=== PATIENT | male | born 1970 | race Caucasian/White ===

== ENCOUNTER 2016-08-07 20:30 | Emergency (ER) | payer OTHER ==
[~2016-08-07] VITALS: Ht 180.3 cm; Wt 85.6 kg
[2016-08-07 21:24] LABS: HEMATOCRIT 39.5 % (38.0-50.0); MCH 31.9 PG (29.0-34.0); MCHC 35.2 G/DL (30.0-36.0); MCV 90.6 FL (86-99); MEAN PLAT.VOLUME 8.3 uM^3 (9.0-12.4); PLATELET COUNT 217 K/uL (156-360); RBC DIS.WIDTH-SD 39.7 % (39-53); RED BLOOD COUNT 4.36 M/uL (4.00-5.50); WHITE BLOOD COUNT 7.2 K/uL (4.1-10.2)
[2016-08-07 21:31] LABS: CHLORIDE 109 mEq/L (99-109)
[2016-08-07 21:32] LABS: SODIUM 143 mEq/L (136-147)
[2016-08-07 21:34] LABS: GLUCOSE 103 mg/dL (70-99)
[2016-08-07 21:35] LABS: ANION GAP 8 MEQ/L (2-14)
[2016-08-07 21:36] LABS: TOTAL BILIRUBIN 0.6 mg/dL (0.0-1.0)
[2016-08-07 21:37] LABS: ALKALINE PHOSPHATASE 55 IU/L (3-129); GFR ESTIMATE (CALCULATED) > 59 mL/min/
[2016-08-07 21:38] LABS: UREA NITROGEN (BUN) 19 mg/dL (9-23)
[2016-08-07 21:46] LABS: TROP-I INTERPRETATION NEGATIVE; TROPONIN-I < 0.01 ng/mL (0.0-0.30)
[2016-08-08 00:06] LABS: D-DIMER ELISA < 0.15 mg/L FEU (< 0.57)
[2016-08-08 00:53] LABS: TROP-I INTERPRETATION NEGATIVE; TROPONIN-I < 0.01 ng/mL (0.0-0.30)
[2016-08-08 02:51] VITALS: BP 102/66
== END 2016-08-08 02:50 | disposition home or self-care (01) ==
LOC: EME 20:30
PROVIDERS: Emergency Medicine
DX: R07.9 Chest pain, unspecified (principal); Z87.891 Personal history of nicotine dependence
CPT/HCPCS: 71020; 80053; 84484; 85027; 85379; 93005; 99281; 99284